=== PATIENT | female | born 1955 | race Caucasian/White ===

== ENCOUNTER 2017-04-11 07:34 | Emergency (ER) | payer OTHER ==
[~2017-04-11] VITALS: Ht 152.4 cm; Wt 137.0 kg
[~2017-04-11 07:34] MED LIST: ASPI81CT89 PO; LOSA25TA14 PO; SIMV20TA1 PO
[2017-04-11 07:38] VITALS: BP 155/120
--- NOTE | 2017-04-11 07:54 | NUR ---
mother remained in triage with mental delayed son, whom also will be seen.
--- NOTE | 2017-04-11 08:00 | NUR ---
61 f bib home with c/o productive cough with greenish phlegm x 2 wks with bodyaches and fatigue. Pt denies any fevers or n/v/d. Pt is aox4, rr are even and unlabored. Pt positioned to comfort, bed. Nad. Er md aware of pt status. Will continue to monitor. Awaiting xray.
--- NOTE | 2017-04-11 08:02 | NUR ---
XRAY BY BEDSIDE
[2017-04-11] MEDS ORDERED: ACETAMINOPHEN 325 MG TAB PO ONE (08:25)
[2017-04-11 09:15] VITALS: BP 148/90
--- NOTE | 2017-04-11 09:15 | NUR ---
Patient discharged with v/s stable. Written and verbal after care instructions given and explained. Patient alert, oriented and verbalized understanding of instructions. Ambulatory with steady gait. All questions addressed prior to discharge. ID band removed. Patient advised to follow up with PMD. Rx of Naprosyn, Guaiatussin, and Tamiflu given. Patient educated on indication of medication including possible reaction and side effects. Opportunity to ask questions provided and answered.
== END 2017-04-11 09:15 | disposition home or self-care (01) ==
LOC: MED 07:34
DX: J06.9 Acute upper respiratory infection, unspecified (principal); I25.2 Old myocardial infarction; I10 Essential (primary) hypertension
CPT/HCPCS: 36415; 71045; 81002; 87804; 99285

== ENCOUNTER 2018-01-05 10:00 | Emergency (ER) | payer OTHER ==
[~2018-01-05] VITALS: Ht 149.9 cm; Wt 141.6 kg
[2018-01-05 10:09] VITALS: BP 156/85
[2018-01-05 10:37] VITALS: BP 148/81
== END 2018-01-05 10:37 | disposition home or self-care (01) ==
LOC: MED 10:00
DX: B35.6 Tinea cruris (principal); I25.2 Old myocardial infarction; I10 Essential (primary) hypertension; Z79.899 Other long term (current) drug therapy
CPT/HCPCS: 99283

== ENCOUNTER 2018-03-23 10:24 | Emergency (ER) | payer OTHER ==
[~2018-03-23] VITALS: Ht 160 cm; Wt 136.1 kg
[2018-03-23 10:41] VITALS: BP 212/85
[2018-03-23] MEDS ORDERED: KETOROLAC 60 MG/2 ML VIAL IM ONE (11:25)
[2018-03-23 12:09] VITALS: BP 169/72
== END 2018-03-23 12:10 | disposition home or self-care (01) ==
LOC: MED 10:24
DX: B02.9 Zoster without complications (principal); I25.2 Old myocardial infarction; I10 Essential (primary) hypertension; Z79.82 Long term (current) use of aspirin; Z79.899 Other long term (current) drug therapy
CPT/HCPCS: 96372; 99283; C1758; J1885; 81002

== ENCOUNTER 2018-04-03 09:28 | Emergency (ER) | payer OTHER ==
[~2018-04-03] VITALS: Ht 154.9 cm; Wt 140.2 kg
[2018-04-03 09:38] VITALS: BP 176/97
[2018-04-03 10:32] VITALS: BP 194/95
== END 2018-04-03 10:32 | disposition home or self-care (01) ==
LOC: MED 09:28
DX: N39.0 Urinary tract infection, site not specified (principal); H81.10 Benign paroxysmal vertigo, unspecified ear; E66.01 Morbid (severe) obesity due to excess calories; I10 Essential (primary) hypertension; Z68.43 Body mass index [BMI] 50.0-59.9, adult; Z79.899 Other long term (current) drug therapy
CPT/HCPCS: 81002; 99283